=== PATIENT | female | born 1960 | race Caucasian/White ===

== ENCOUNTER 2017-03-19 15:50 | Outpatient (CLI) | payer OTHER | END 2017-03-19 15:51 | disposition home or self-care (01) | LOC: DTY/OP 15:50 | PROVIDERS: ATTEND Specialist | DX: Z01.818 Encounter for other preprocedural examination (principal); E66.01 Morbid (severe) obesity due to excess calories | CPT/HCPCS: 97802 ==

== ENCOUNTER 2017-10-24 14:30 | Inpatient (IN) | payer OTHER ==
[2017-10-24 16:48] VITALS: BMI 38.0
[2017-10-30] MEDS ORDERED: Heparin 5,000 UNITS/ML VIAL ONE (09:10)
[2017-10-30] MEDS ORDERED: Ketorolac Tromethamine 30 MG/ML VIAL ONE (09:10)
[2017-10-30] MEDS ORDERED: Sodium Chloride 0.9% 100 ML ONE (09:11)
[2017-10-30] MEDS ORDERED: Scopolamine 1.5 mg/72 hour Patch ONE (09:11)
[2017-10-30] MEDS ORDERED: cefOXitin 2 GM VIAL ONE (09:11)
[2017-10-30] MEDS ORDERED: Bupivacaine/Epinephrine 0.25% 30 ML VIAL ONE (11:07)
[2017-10-30] MEDS ORDERED: Fentanyl 100 MCG/2 ML VIAL ONE ×4 (11:09→16:24)
[2017-10-30] MEDS ORDERED: Famotidine/PF 20 mg/2ml Vial ONE (11:09)
[2017-10-30] MEDS ORDERED: Meperidine HCl/PF 25 MG/ML VIAL SLOW IVP PRN (12:35)
[2017-10-30] MEDS ORDERED: Ondansetron HCl/PF 4 MG/2 ML Vial IVP PRN ×2 (12:35→16:59)
[2017-10-30] MEDS ORDERED: Promethazine HCl 25 MG/ML VIAL IM PRN ×2 (12:35→16:59)
[2017-10-30] MEDS ORDERED: Promethazine HCl 25 MG/ML VIAL SLOW IVP PRN (12:35)
[2017-10-30] MEDS ORDERED: Dexamethasone 20 MG/5 ML VIAL ONE ×2 (14:24)
[2017-10-30] MEDS ORDERED: ePHEDrine/0.9% NaCl/PF SYRINGE 50 mg/10 ml ONE (14:24)
[2017-10-30] MEDS ORDERED: Ondansetron HCl/PF 4 MG/2 ML Vial ONE (14:24)
[2017-10-30] MEDS ORDERED: Lidocaine 1% PF 5 ML VIAL ONE (14:24)
[2017-10-30] MEDS ORDERED: PROPOFOL 200 MG/20 ML VIAL ONE (14:24)
[2017-10-30] MEDS ORDERED: Glycopyrrolate 0.2 MG/ML 5 ML SYRINGE ONE (14:24)
[2017-10-30] MEDS ORDERED: D5 1/2 NS w/20 mEq KCL 1,000 ML ONE (16:28)
[2017-10-30] MEDS ORDERED: Dextrose 5% in Water 1,000 ML IV PRN (16:59)
[2017-10-30] MEDS ORDERED: Dextrose 50% Abboject 50 ML SYRINGE SLOW IVP PRN (16:59)
[2017-10-30] MEDS ORDERED: hydrALAZINE 20 MG/ML VIAL SLOW IVP PRN (16:59)
[2017-10-30] MEDS ORDERED: diphenhydrAMINE 50 MG/ML VIAL IVP PRN (16:59)
[2017-10-30] MEDS ORDERED: Hydrocodone-Acetamin 15 ML UDCUP PO PRN (16:59)
[2017-10-30] MEDS: Ketorolac Tromethamine 30 MG/ML VIAL IVP SCH ×3 (17:41→23:55)
[2017-10-30] MEDS: Acetaminophen 1,000 MG in Premix Bag 1 BAG IVPB SCH ×2 (17:42→23:53)
[2017-10-30] MEDS: D5 1/2 NS w/20 mEq KCL 1,000 ML IV SCH (17:46)
[2017-10-30] MEDS ORDERED: Enoxaparin Sodium 40 MG/0.4 ML SYRINGE SC SCH (21:00)
[2017-10-30] MEDS ORDERED: Pantoprazole 40 MG VIAL IVP SCH (21:00)
[2017-10-31] MEDS: D5 1/2 NS w/20 mEq KCL 1,000 ML IV SCH ×2 (01:15→08:40)
[2017-10-31] MEDS ORDERED: Morphine 2 MG/ML SYRINGE SLOW IVP PRN (04:18)
[2017-10-31] MEDS ORDERED: Morphine 4 MG/ML VIAL SLOW IVP PRN (04:18)
[2017-10-31 04:35] LABS: #Basophils 0.1 thou/uL (0.0-0.2); #Lymphocytes 1.1 thou/uL (1.20-3.40); #Monocytes 0.9 thou/uL (0.11-0.59); #Neutrophils 12.2 thou/uL (1.40-6.50); %Basophils 0.4 % (0.0-1.0); %Eosinophils 0.1 % (0.0-10.0); %Lymphocytes 7.4 % (21.0-51.0); %Monocytes 6.4 % (0.0-10.0); %Neutrophils 85.8 % (42.0-75.0); Hemoglobin 13.4 g/dL (12.0-16.0); Mean Corpuscular HGB CONC 32.2 g/dL (32.0-36.0); Mean Corpuscular Hemoglobin 29.1 pg (27.0-31.0); Mean Corpuscular Volume 90.5 fL (78.0-98.0); Mean Platelet Volume 8.4 fL (7.4-10.4); Platelet Count 314 thou/uL (130-400); RBC Distribution Width 12.5 % (11.5-14.5); Red Blood Cell (RBC) Count 4.59 mill/uL (4.20-5.40); White Blood Cell (WBC) Count 14.2 thou/uL (4.8-10.8)
[2017-10-31 04:43] LABS: Anion Gap 11 mmol/L (10-20); BUN (Urea Nitrogen) 16 mg/dL (9.8-20.1); Calc. Creatinine Clearance 138 mL/min (70-130); Calcium 8.4 mg/dL (7.8-10.44); Carbon Dioxide 20 mmol/L (22-29); Chloride 105 mmol/L (98-107); Estimated GFR-MDRD 87; Glucose 185 mg/dL (70-105); Potassium 4.3 mmol/L (3.5-5.1); Sodium 132 mmol/L (136-145)
[2017-10-31] MEDS: Acetaminophen 1,000 MG in Premix Bag 1 BAG IVPB SCH ×2 (05:17→11:48)
[2017-10-31] MEDS: Ketorolac Tromethamine 30 MG/ML VIAL IVP SCH ×2 (05:21→11:48)
[2017-10-31 12:30] VITALS: BP 119/80; TEMP 97.9
--- NOTE | 2017-11-01 11:43 | OP ---
DATE OF PROCEDURE: 11/01/2017 PREOPERATIVE DIAGNOSIS: Morbid obesity. POSTOPERATIVE DIAGNOSIS: Morbid obesity. OPERATION PERFORMED: Laparoscopic vertical sleeve gastrectomy using this ViSiGi device. SURGEON: Maninder Sosa M.D. ANESTHESIA: General endotracheal. INDICATIONS: The patient is a 57-year-old morbidly obese white female. She has undergone preoperati ve evaluation and education. She is taken to the operating room at this time for sleeve gastrectomy. DESCRIPTION OF OPERATION: Informed consent was obtained. The patient was taken to the operating manisha m where general endotracheal anesthesia obtained with the patient in supine position. Abdomen was pr epped with ChloraPrep and draped in sterile fashion. Local anesthetic was infiltrated and 5 mm supra umbilical incision was created through which Veress needle was passed to the peritoneal cavity and pn eumoperitoneum established using carbon dioxide up to a pressure of 15 mmHg. A 5 mm trocar port was passed through this same incision. Laparoscopic camera was passed through this port. Under direct v ision, 4 additional ports were placed including bilateral 5 mm subcostal ports, a 12 mm right paramed myranda port and a 15 mm left paramedian port. A 5 mm epigastric incision was created through which Nathansen retractor was passed into the abdomina l cavity and used to retract the left lobe of the liver. The patient was placed into reverse [place] position. The ViSiGi device was advanced within the stomach and used to decompress this. The pylorus was ident ified and beginning 4 cm proximal to the pylorus, the omentum and vascular tissue along the greater c urvature was divided using the LigaSure in an ascending fashion up to the angle of His. All posterio r adhesions were mobilized. The short gastric vessels were carefully divided and then hemostasis was maintained using the LigaSure. Once this was completely mobilized, the ViSiGi was carefully positio raven at the level of the pylorus and placed to suction, which was clearly defining the lesser curvatur e of the stomach. The gastrectomy was then performed using a series of fires of the Rockledge stapler using a green load followed by a gold load and a series of blue loads until completion of the gastrectomy. The ViSiGi a long the lesser curvature was used as a size 36 bougie to guide in the gastric division. Care was ta min to avoid narrowing the incisura or the gastroesophageal junction. The integrity of the staple line was then assessed by insufflating gas through the ViSiGi while irrig ating along the staple line. There was no evidence of an air leak. There was no evidence of bleedin g along the staple line. The resected stomach was then removed through the 15 mm port and the fascia was closed with 0 Vicryl suture using a GraNee needle. I then closed the 12 mm port also using the GraNee needle and 0 Vicryl suture. The Nathansen retractor was removed. All ports and instruments were removed under direct v ision. All irrigant was aspirated. Pneumoperitoneum was carefully evacuated. Quarter percent [place] ine with epinephrine was infiltrated into each port site. Skin edges approximated with 4-0 Monocryl subcuticular suture. Dermabond was placed externally. There were no complications. The patient pablo erated the procedure well and was taken to recovery room in stable condition. FINDINGS: The patient had unusual intra-abdominal anatomy. There was no evidence of fatty liver. T here were no adhesions that were encountered. Blood loss was negligible and there were no complicati ons or injuries. Hemoclips were placed along the staple line to ensure staple line hemostasis. Ther e was certainly no leak. The leak when it was tested. The patient tolerated the procedure well and was taken to recovery room in stable condition.
== END 2017-10-31 12:55 | disposition home or self-care (01) | DRG 621 ==
LOC: SURG A 10-30 08:25
PROVIDERS: ADMIT Specialist; ATTEND Specialist
PROC: 0DB64Z3 Excision of Stomach, Percutaneous Endoscopic Approach, Vertical (ICD-10-PCS; principal; 2017-10-30)
DX: E66.01 Morbid (severe) obesity due to excess calories (principal); Z68.41 Body mass index [BMI] 40.0-44.9, adult; I10 Essential (primary) hypertension
CPT/HCPCS: 36415; 80048; 85025; 88307; 88312; 94760; C9113; J0131; J0694; J1100; J1644; J1650; J1885; J2001; J2270; J2405; J2704; J3010; J7050; S0028

== ENCOUNTER 2018-05-15 08:56 | Outpatient (CLI) | payer OTHER ==
--- NOTE | 2018-05-15 10:16 | ULT ---
ULTRASOUND ABDOMEN COMPLETE: DATE: 05/15/2018. HISTORY: A 57-year-old female with generalized abdominal pain. FINDINGS: Liver: Normal size. Multiple cysts, including large septated ones. The largest in the right lobe is 5 x 4 x 3.5 cm. The largest in the left lobe is 4.5 x 4 x 3 cm. Gallbladder: Normal wall thickness of 2 mm. Two tiny echogenic foci very close to each other adheren t to the gallbladder wall in the lumen. Each one measures approximately 3 and 4 mm. No pericholecys tic fluid. Positive sonographic Peters's sign. Common duct: 4 mm. Spleen: 10.5 x 4 x 4.5 cm, and contains multiple masses that have lobular margins, and heterogeneous hyperechogenicity. The largest of these is 2.5 x 2 x 1.5 cm. Pancreas: Nonspecific sonographic appearance. Kidneys: No hydronephrosis. Abdominal aorta: No aneurysm. Inferior vena cava: Unremarkable where visualized. IMPRESSION: 1. Multiple splenic masses. 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 2. Two tiny gallbladder polyps. 3. Significant tenderness over the gallbladder region, despite lack of sonographic evidence of acute cholecystitis or cholelithiasis. 4. Incidental finding of multiple complex hepatic cysts. 5. For the splenic lesions, recommend multiphase MRI of the abdomen with and without contrast, with attenuation to the spleen (unless there are contraindications to MRI, in which case multiphase CT wit h and without contrast is recommended). RYNA Su POS: [facility]
== END 2018-05-15 08:57 | disposition home or self-care (01) ==
LOC: ULT 08:56
PROVIDERS: ATTEND Nurse Practitioner Family
DX: R10.11 Right upper quadrant pain (principal); K82.4 Cholesterolosis of gallbladder; R16.1 Splenomegaly, not elsewhere classified; D73.89 Other diseases of spleen
CPT/HCPCS: 76700

== ENCOUNTER 2018-06-25 12:03 | Outpatient (CLI) | payer OTHER ==
[2018-06-25 13:05] LABS: Estimated GFR-MDRD - POC Greater than 90
--- NOTE | 2018-06-25 14:59 | MRI ---
MRI ABDOMEN WITH AND WITHOUT IV CONTRAST: Date: 06/25/18 HISTORY: Cystic disease of liver, abnormal findings on ultrasound of 05/15/18. CORRELATION: Ultrasound abdomen of 05/15/18. FINDINGS: Multiple cysts are seen in the liver with low T1, high T2 signal, and no postcontrast enhancement. Th e largest of these in the right lobe measures 4.9 cm and in the left lobe measures 4.6 cm. No abnorma l biliary ductal dilatation is seen. The gallbladder, pancreas, adrenal glands, and kidneys appear no rmal. There are multiple masses in the spleen which demonstrate low T1, high T2 signal, and peripheral nodu lar enhancement with centripetal filling on delayed images, consistent with hemangiomas. The largest of these measures about 2.5 cm. No free fluid or lymphadenopathy seen. There is no evidence of aneurysmal dilatation of the abdominal aorta. Bone marrow signal is normal. IMPRESSION: 1. Liver cysts. 2. Splenic hemangiomas. POS: [facility]
== END 2018-06-25 12:04 | disposition home or self-care (01) ==
LOC: BICMRI 12:03
PROVIDERS: ATTEND Nurse Practitioner Family
DX: K82.4 Cholesterolosis of gallbladder (principal); R10.9 Unspecified abdominal pain; D73.89 Other diseases of spleen; Q44.6 Cystic disease of liver; K76.89 Other specified diseases of liver; D18.03 Hemangioma of intra-abdominal structures
CPT/HCPCS: 74183; 82565

== ENCOUNTER 2024-10-07 12:10 | Outpatient (CLI) | payer BC | END 2024-10-07 12:11 | disposition home or self-care (01) | LOC: BICULT 12:10 | PROVIDERS: ATTEND Nurse Practitioner Primary Care | DX: R22.42 Localized swelling, mass and lump, left lower limb (principal); R79.89 Other specified abnormal findings of blood chemistry ==